=== PATIENT | female | born 1980 | race Caucasian/White ===

== ENCOUNTER 2020-02-02 08:12 | Outpatient (CLI) | payer OTHER, SELFPAY ==
[2020-02-05 02:47] LABS: Patient Race White; SARS-CoV-2 RNA Undetected (Undetected); SARS-CoV-2 Specimen Source Nasal
== END 2020-02-02 08:32 ==
PROVIDERS: Visit Provider Family Medicine
DX: Z20.828 Contact with and (suspected) exposure to other viral communicable diseases (principal)
CPT/HCPCS: U0003